=== PATIENT | male | born 1960 | race Caucasian/White ===

== ENCOUNTER 2018-03-15 16:11 | Emergency (ER) | payer OTHER ==
[2018-03-15] MEDS ORDERED: TDAP ADULT 0.5 ML INJ (BOOSTRIX) IM ONE (16:22)
--- NOTE | 2018-03-15 16:52 | EDPHY ---
H & P Time Seen by Provider: 03/15/18 16:15 HPI/ROS: CHIEF COMPLAINT: Finger laceration HISTORY OF PRESENT ILLNESS: Patient states he was at work around 3:00 a.m. This afternoon when he injured himself. He was reaching under a work bench to unplug a device and caught his left ring finger on a piece of sharp sheet metal lacerating the distal pad. He denies any other injuries. He denies any numbness, tingling, weakness. Last tetanus vaccination 2003. REVIEW OF SYSTEMS: Negative except per HPI. General Appearance: Alert, no distress. Eyes: Pupils equal and round no icterus Respiratory: No respiratory distress Neurological: Awake, alert, no focal deficits. Skin: Warm and dry, no rashes. Musculoskeletal: Neck is supple nontender. Extremities are symmetrical, full range of motion, no edema. Left ring finger with approximately 1.5 cm laceration over the volar pad of the distal phalange. Psychiatric: Patient is oriented X 3, there is no agitation. Medical/surgical history: No past medical history. No medications. Social history: Nonsmoker, no drugs, occasional alcohol. Smoking Status: Never smoked Constitutional: Initial Vital Signs Temperature (C) 36.6 C 03/15/18 16:17 Heart Rate 69 03/15/18 16:17 Respiratory Rate 16 03/15/18 16:17 Blood Pressure 128/90 H 03/15/18 16:17 O2 Sat (%) 95 03/15/18 16:17 O2 Delivery Mode Room Air Allergies/Adverse Reactions: some antibiotic used for dysyntery Allergy (Uncoded 03/15/18 16:16) Home Medications: Medication Instructions Recorded NK [No Known Home Meds] 03/15/18 Medical Decision Making Procedures: Procedure: Laceration repair 5:10pm. Verbal consent was obtained from the patient. The 1.5 cm laceration on the left ring, 4th, finger was anesthetized in the usual fashion with 3 mils 2% lidocaine without epi. The wound was irrigated, draped and explored to its base with a gloved finger. There were no deep structures involved. No tendon injury was identified. The wound was repaired with 400 Prolene. The wound repair was four interrupted sutures, good edge approximation, bleeding controlled. The procedure was performed by myself. Differential Diagnosis: Uncomplicated full-thickness laceration of the left 4th finger distal pad verses sheet metal at work. No evidence of fracture, deep structure involvement , immunocompromise. Repair as documented above. Tetanus vaccination updated. Suture removal in 12-14 days. Discussed wound care and follow-up in detail. Stable for discharge. - Data Points Medications Given: Discontinued Medications Diphtheria/Tetanus/Acell Pertussis (Boostrix) 0.5 ml IM .ONCE ONE Stop: 03/15/18 16:23 Last Admin: 03/15/18 16:53 Dose: 0.5 ml Departure - Departure Clinical Impression: Laceration Condition: Good Instructions: Finger Laceration (ED) Additional Instructions: Keep area clean, dry. Apply antibiotic ointment and cover with bandage. You should wash it twice a day. Return to the emergency department if he develops signs or symptoms of infection including increased pain, swelling, redness or pus. Otherwise return to the emergency department or go to your workmen's comp clinic for suture removal in 12-14 days. Referrals: NONE *PRIMARY CARE P,. [Primary Care Provider] - As per Instructions
[2018-03-15 17:31] VITALS: BP 125/72
== END 2018-03-15 17:29 | disposition home or self-care (01) ==
LOC: CED 16:11
PROC: 0HQGXZZ Repair Left Hand Skin, External Approach (ICD-10-PCS; principal; 2018-03-15)
DX: S61.215A Laceration without foreign body of left ring finger without damage to nail, initial encounter (principal); W26.8XXA Contact with other sharp object(s), not elsewhere classified, initial encounter; Y99.0 Civilian activity done for income or pay; Z23 Encounter for immunization